=== PATIENT | female | born 1950 | race Caucasian/White ===

== ENCOUNTER 2018-05-31 15:03 | Day surgery (SDC) | payer OTHER | END 2018-05-31 17:00 | disposition home or self-care (01) | LOC: JASU-SURG 15:03 ==

== ENCOUNTER 2018-06-09 08:51 | Day surgery (SDC) | payer OTHER ==
[2018-06-06 08:01] VITALS: BMI 30.9
[2018-06-09] MEDS ORDERED: BUPIVACAINE HCL/PF 0.5% (5MG/ML) 10 ML VIAL ONE (11:19)
[2018-06-09] MEDS ORDERED: MIDAZOLAM HCL 2 MG/2 ML SINGLE DOSE VIAL ONE (12:37)
[2018-06-09] MEDS ORDERED: LIDOCAINE HCL 1%, 10 MG/ML (20ML VIAL) ONE (12:42)
[2018-06-09] MEDS ORDERED: ceFAZolin SODIUM 1 GM VIAL IVPB ONE (12:43)
[2018-06-09] MEDS ORDERED: SODIUM CHLORIDE 0.9% P/F 10 ML VIAL IJ ONE (12:59)
[2018-06-09] MEDS ORDERED: DEXAMETHASONE SOD PHOSPHATE 4 MG/1 ML VIAL ONE (12:59)
[2018-06-09] MEDS ORDERED: ONDANSETRON 4 MG/2 ML VIAL ONE (12:59)
[2018-06-09] MEDS ORDERED: LIDOCAINE HCL/PF 2% SDV 5ML VIAL ONE (12:59)
[2018-06-09] MEDS ORDERED: ceFAZolin SODIUM 1 GM VIAL ONE (12:59)
[2018-06-09] MEDS ORDERED: KETOROLAC TROMETHAMINE 30 MG/1 ML VIAL ONE ×2 (13:00→15:02)
[2018-06-09] MEDS ORDERED: PROPOFOL 20 ML ONE (13:03)
[2018-06-09] MEDS ORDERED: LIDOCAINE 1% P/F 10 MG/ML VIAL INF ONE (13:10)
[2018-06-09] MEDS ORDERED: BUPIVACAINE HCL 0.5% 250 MG/50 ML VIAL IJ ONE (13:10)
--- NOTE | 2018-06-09 13:26 | OP ---
Operative Note - Note: Operative Date: 06/09/18 Pre-Operative Diagnosis: epigastric hernia Operation: open repair of epigastric hernia Findings: epigastric hernia with incarcerated preperitoneal adipose tissue Post-Operative Diagnosis: Same as Pre-op Surgeon: Jitendra Egan Crop Or Grain Farmer: Kenroy Chambers Anesthesia: General Specimens Removed: hernia sac and contents Estimated Blood Loss (mls): 5 Operative Report Dictated: Yes
--- NOTE | 2018-06-09 13:58 | SURG ---
Surgery Proof Passer Note Proof Passer: Kenroy Chambers PA-C (Suzy) Date of Service: 06/09/18 Diagnosis: epigastric hernia Procedure: open repair of epigastric hernia I was present for the entirety of the operative procedure. For further detail, please refer to operative report. Visit type - Case Type Case Type: Scheduled - Emergency Emergency Visit: No - New patient This patient is new to me today: Yes Date on this admission: 06/09/18 - Critical Care Critical Care patient: No
--- NOTE | 2018-06-09 14:05 | OP ---
DATE OF OPERATION: 06/09/2018 PREOPERATIVE DIAGNOSIS: Epigastric hernia. POSTOPERATIVE DIAGNOSIS: Epigastric hernia. PROCEDURE: Open repair of epigastric hernia, primary repair, no mesh. SURGEON: Jitendra Egan MD TRIMMER BUFFING WHEEL: MARCUS Chambers COMPLICATIONS: None. BLEEDING: Minimal. The patient tolerated the procedure well. INDICATIONS: This is a 67-year-old female who presented with pain in the epigastric region. On physical exam it was identified to be an epigastric hernia with omental incarceration. She was referred for surgical repair, which she agreed to procedure. Risks and benefits discussed. The options included laparoscopy robotic-assisted open repair with and without mesh were discussed, and the patient agreed to proceed with this plan. DESCRIPTION OF PROCEDURE: In the operating room, she was placed in a supine position. After administration of anesthesia with LMA, she was then prepped and draped in the usual sterile fashion. She received IV antibiotics. The area was infiltrated with Marcaine 1% and lidocaine 0.25% mixed 50/50. An incision was made longitudinally along the defect for approximately 4 cm. Cautery was used to dissect the subcutaneous tissue until the sac was encountered. The sac was then circumferentially dissected to the base of the fascia. It was divided at this level. The omental attachments into the sac were then cross clamped with a Joanne clamp and then divided with cautery and ligated with a 2-0 Vicryl tie. The fascial defect was a small defect of less than a cm. The decision was made to then do a primary repair, which was done with 3 sutures of 2-0 Prolene to be placed transversely across the defect. Check for hemostasis performed. The fascia was also infiltrated with Marcaine as well. Subcutaneous tissues were approximated with 3-0 Vicryl. The skin was closed with 4-0 Monocryl. Dermabond was applied, and the patient was returned to the recovery room awake and alert in stable condition. Tolerated procedure well. Brandy BEACH/[id number]
[2018-06-09] MEDS ORDERED: oxyCODONE HCL 5 MG TABLET PO PRN (15:14)
[2018-06-09] MEDS ORDERED: KETOROLAC TROMETHAMINE 30 MG/1 ML VIAL IVPUSH ONE (15:14)
[2018-06-09] MEDS ORDERED: ONDANSETRON 4 MG/2 ML VIAL IVPUSH PRN (15:14)
[2018-06-09] MEDS ORDERED: LACTATED RINGERS SOLUTION 1,000 ML IV SCH (15:15)
[2018-06-09 16:11] VITALS: TEMP 97.3
[2018-06-09 18:42] VITALS: BP 105/62; PULSE 60
--- NOTE | 2018-06-12 11:15 | PATH ---
Surgical Pathology Report Patient Name: LUIS ALBERTO LINARES [facility]. Rec. #: [id number] /Age/Gender: 1950 (Age: 67) / F Account: [id number] Location: [facility] SURGICAL Taken: 06/09/2018 Received: 06/09/2018 Reported: 06/12/2018 Physicians: Jitendra Egan M.D. Specimen(s) Received HERNIA SAC AND CONTENTS Clinical History Ventral hernia without obstruction or gangrene Final Diagnosis SOFT TISSUE, ABDOMINAL WALL, EXCISION: FIBROMEMBRANOUS TISSUE CONSISTENT WITH HERNIA SAC, AND BENIGN ADIPOSE TISSUE. Electronically Signed Nathan Crisostomo M.D. Gross Description Received in formalin labeled "hernia sac and contents," is a 5.5 x 3.0 x 1.7 cm portion of aviles fibromembranous tissue containing yellow, lobulated adipose tissue, consistent with a hernia sac. A business representative section is submitted in one cassette. /06/09/2018 saudi06/09/2018
== END 2018-06-09 17:45 | disposition home or self-care (01) ==
LOC: JASU-SURG 08:51
PROVIDERS: ATTEND Surgery
PROC: 0WQF0ZZ Repair Abdominal Wall, Open Approach (ICD-10-PCS; principal; 2018-06-09 12:53)
DX: K43.9 Ventral hernia without obstruction or gangrene (principal)
CPT/HCPCS: 88302-TC; 94760

== ENCOUNTER 2018-08-05 13:56 | Emergency (ER) | payer OTHER | END 2018-08-05 14:21 | disposition home or self-care (01) | LOC: JERFT 13:56 ==

== ENCOUNTER 2019-08-28 06:13 | Day surgery (SDC) | payer OTHER ==
[2019-08-27 09:57] VITALS: BMI 30.9
[2019-08-28] MEDS: TROPICAMIDE 1% OPHTH SOLN 15 ML BOTTLE ONE ×3 (07:05→07:25)
[2019-08-28] MEDS: FLURBIPROFEN 0.03% OPHTH SOLN 2.5 ML BOTTLE ONE ×3 (07:05→07:25)
[2019-08-28] MEDS: CYCLOPENTOLATE HCL 1% OPHTH SOLN 2 ML BOTTLE ONE ×3 (07:05→07:25)
[2019-08-28] MEDS ORDERED: PHENYLEPHRINE 2.5% OPHTH SOLN 15 ML BOTTLE OS ONE ×3 (07:05→07:25)
[2019-08-28] MEDS: CIPROFLOXACIN HCL 0.3% OPHTH 2.5ML BOTTLE ONE ×3 (07:05→07:25)
[2019-08-28] MEDS ORDERED: EPINEPHrine/PF 1 MG/1 ML (1:1,000) AMPULE ONE ×2 (07:36→08:05)
[2019-08-28] MEDS ORDERED: LIDOCAINE HCL/PF 1% SDV 5ML VIAL ONE (07:36)
[2019-08-28] MEDS ORDERED: TOBRAMYCIN/DEXAMETHASONE OPHTH. OINTMENT 1 TUBE ONE ×2 (07:36→07:41)
[2019-08-28] MEDS ORDERED: CHONDROITIN SU A/HYALUR SOD 1 KIT ONE (07:36)
[2019-08-28] MEDS ORDERED: TETRACAINE 0.5% OPHTH SOLN 2 ML BOTTLE ONE (07:41)
[2019-08-28] MEDS ORDERED: MIDAZOLAM HCL 2 MG/2 ML SINGLE DOSE VIAL ONE ×2 (07:46→09:14)
[2019-08-28] MEDS ORDERED: LIDOCAINE HCL 4% PRESERVE-FREE 5 ML AMP ONE (08:05)
[2019-08-28] MEDS ORDERED: POVIDONE-IODINE 5% OPHTHALMIC PREP 30 ML SOLUTION ONE (08:16)
[2019-08-28] MEDS ORDERED: TETRACAINE 0.5% OPHTH SOLN 2 ML BOTTLE OS ONE (08:33)
[2019-08-28] MEDS ORDERED: POVIDONE-IODINE 5% OPHTHALMIC PREP 30 ML SOLUTION OS ONE (08:34)
[2019-08-28] MEDS ORDERED: BSS (NA/CA/MG/K) BALANCED SALT SOLUTION OPHTH SOLN 15 ML BOTTLE OS ONE (08:43)
[2019-08-28] MEDS ORDERED: LIDOCAINE 1% P/F 10 MG/ML VIAL INF ONE (08:43)
[2019-08-28] MEDS ORDERED: CHONDROITIN SU A/HYALUR SOD 1 KIT IO ONE ×2 (08:43)
[2019-08-28] MEDS ORDERED: EPINEPHrine/PF 1 MG/1 ML (1:1,000) AMPULE SQ ONE (08:43)
[2019-08-28 10:00] VITALS: TEMP 97
[2019-08-28 10:43] VITALS: BP 110/71; PULSE 62
--- NOTE | 2019-08-30 23:14 | OP ---
DATE OF OPERATION: 08/28/2019 DATE OF DICTATION: 08/30/2019 PREOPERATIVE DIAGNOSIS: Cataract left eye and myosis. POSTOPERATIVE DIAGNOSIS: Cataract left eye and myosis. PROCEDURE: Phacoemulsification with posterior chamber lens implantation left eye. ANESTHESIA: Topical. SURGEON: Jaymie Krishnamurthy MD. COMPLICATIONS: None. INCIDENT RESPONSE CONSULTANT: None. PROCEDURE: The patient went to the operating room and anesthesia began with intravenous fluids and mild sedation. The patient was prepped and draped in the usual manner for sterile ophthalmic surgery. A speculum was inserted into the left eye. The pupil was miotic despite multiple dilating drops prior to surgery. A side port stab incision was made in 2 locations and preservative-free lidocaine followed by Viscoat were inserted into the anterior chamber in the hopes of further dilation. There was some minimal dilation, and it was felt that the pupil could possibly be removed, a safe capsulorrhexis could be performed with cataract extraction. However, after a 360-degree continuous capsulorrhexis was performed, the pupil continued to come down, and at that point it was felt that additional side port incisions were necessary in order to expand the pupil with pupillary hooks. This was then done, and patient had cataract extraction with posterior chamber uneventfully with intraocular lens implantation placed after there was polishing of the capsule and central placement of the lens. The Viscoat and Provisc were needed throughout surgery to keep the iris from coming out through the primary incision, and there seemed to be some pressure throughout the case, but no evidence of choroidals. The hooks were removed, and the remaining Viscoat and Provisc were removed from the eye. The patient concluded the procedure in uncomplicated fashion. The wound was then sealed, and no sutures were required. The patient completed the procedure in an uncomplicated fashion and went to the ambulatory unit in stable condition. JAYMIE KRISHNAMURTHY M.D. ELGIN/[id number]
== END 2019-08-28 10:43 | disposition home or self-care (01) ==
LOC: JASU-SURG 06:13
PROVIDERS: ATTEND Ophthalmology
PROC: 08RK3JZ Replacement of Left Lens with Synthetic Substitute, Percutaneous Approach (ICD-10-PCS; principal; 2019-08-28 08:00)
DX: H26.9 Unspecified cataract (principal); H57.03 Miosis

== ENCOUNTER 2023-12-07 17:07 | Emergency (ER) | payer OTHER ==
[2023-12-07 17:36] VITALS: BP 116/77; PULSE 85; RESP 18; TEMP 98.3; BMI 29.9
[2023-12-07 18:44] LABS: EPI CELLS 23 /uL (0-25.1); HYALINE CASTS 0 /uL (0-3.1); URINE APPEARANCE CLEAR; URINE BACTERIA 49 /uL (0-1359); URINE BILIRUBIN NEGATIVE (NEGATIVE); URINE COLOR YELLOW; URINE GLUCOSE (UA) NEGATIVE (NEGATIVE); URINE KETONE TRACE (NEGATIVE); URINE LEUK ESTERASE 1+ (NEGATIVE); URINE NITRITE NEGATIVE (NEGATIVE); URINE PROTEIN NEGATIVE (NEGATIVE); URINE RBC 10 /uL (0-23.9); URINE UROBILINOGEN 0.2 mg/dL (0.2-1.0); URINE WBC 39 /uL (0-25.8)
== END 2023-12-07 20:00 | disposition home or self-care (01) ==
LOC: JER 17:07 → JERFT 17:07
DX: M54.50 Low back pain, unspecified (principal); N39.0 Urinary tract infection, site not specified
CPT/HCPCS: 81003; 87086; 99283-25